=== PATIENT | male | born 1945 | race Caucasian/White ===

== ENCOUNTER 2022-07-30 14:41 | Outpatient (CLI) | payer OTHER | END 2022-07-30 14:42 | disposition home or self-care (01) | LOC: CSHRAD 14:41 | PROVIDERS: ATTEND Internal Medicine Rheumatology | DX: M25.521 Pain in right elbow (principal); M25.522 Pain in left elbow; M19.021 Primary osteoarthritis, right elbow; M19.022 Primary osteoarthritis, left elbow; M25.422 Effusion, left elbow ==